=== PATIENT | female | born 1965 | race Caucasian/White ===

== ENCOUNTER 2018-03-20 07:23 | Emergency (ER) | payer MEDICAID ==
[~2018-03-20] VITALS: Ht 160 cm; Wt 63.5 kg
[2018-03-20 07:30] VITALS: BP 101/60
--- NOTE | 2018-03-20 07:46 | NUR ---
Dressing applied to L upper arm
[2018-03-20] MEDS ORDERED: BACI/NEOM/POLY B OINT PKT 1 UDPKT PACKET TP ONE (08:00)
== END 2018-03-20 07:49 | disposition home or self-care (01) ==
LOC: ER 07:26
DX: S41.152A Open bite of left upper arm, initial encounter (principal); F17.200 Nicotine dependence, unspecified, uncomplicated; Z98.890 Other specified postprocedural states; W54.0XXA Bitten by dog, initial encounter; Y93.89 Activity, other specified; Y92.89 Other specified places as the place of occurrence of the external cause; Y99.8 Other external cause status
CPT/HCPCS: 99282; A4606; Z7610

== ENCOUNTER 2018-04-19 12:46 | Emergency (ER) | payer MEDICAID ==
[~2018-04-19] VITALS: Ht 160 cm; Wt 62.6 kg
[2018-04-19 12:46] VITALS: BP 109/63
--- NOTE | 2018-04-19 14:36 | NUR ---
Patient discharged to home in stable condition. Written and verbal after care instructions given. Patient verbalizes understanding of instruction. left in stable condition.
== END 2018-04-19 13:04 | disposition home or self-care (01) ==
LOC: ER 12:46
DX: G89.11 Acute pain due to trauma (principal); M79.622 Pain in left upper arm; F17.200 Nicotine dependence, unspecified, uncomplicated; Z90.89 Acquired absence of other organs; Z98.890 Other specified postprocedural states
CPT/HCPCS: 73060-TC; A4606; Z7610

== ENCOUNTER 2018-07-04 11:33 | Emergency (ER) | payer MEDICAID ==
[~2018-07-04] VITALS: Ht 160 cm; Wt 61.2 kg
[2018-07-04 11:33] VITALS: BP 112/73
== END 2018-07-04 12:36 | disposition home or self-care (01) ==
LOC: ER 11:35
DX: G62.9 Polyneuropathy, unspecified (principal); F17.200 Nicotine dependence, unspecified, uncomplicated; Z90.89 Acquired absence of other organs; Z98.890 Other specified postprocedural states
CPT/HCPCS: 99283; A4606; Z7610

== ENCOUNTER 2019-03-03 16:21 | Emergency (ER) | payer MEDICAID ==
[~2019-03-03] VITALS: Ht 160 cm; Wt 67.1 kg
[2019-03-03 16:24] VITALS: BP 127/82
== END 2019-03-03 18:08 | disposition home or self-care (01) ==
LOC: ER 16:26
DX: S46.812A Strain of other muscles, fascia and tendons at shoulder and upper arm level, left arm, initial encounter (principal); S80.01XA Contusion of right knee, initial encounter; F17.200 Nicotine dependence, unspecified, uncomplicated; Z90.89 Acquired absence of other organs; Z98.890 Other specified postprocedural states; W01.198A Fall on same level from slipping, tripping and stumbling with subsequent striking against other object, initial encounter; Y93.89 Activity, other specified; Y92.89 Other specified places as the place of occurrence of the external cause; Y99.8 Other external cause status
CPT/HCPCS: 73030-TC

== ENCOUNTER 2020-04-12 12:11 | Emergency (ER) | payer OTHER ==
[~2020-04-12] VITALS: Ht 160 cm; Wt 63.5 kg
[2020-04-12 12:15] VITALS: BP 115/79
[2020-04-12] MEDS ORDERED: IBUPROFEN 600 MG TABLET ONE (12:46)
[2020-04-12] MEDS ORDERED: ACETAMINOPHEN ES 500 MG TABLET ONE (12:46)
[2020-04-12] MEDS ORDERED: ACETAMINOPHEN ES 500 MG TABLET PO ONE (13:00)
[2020-04-12] MEDS ORDERED: IBUPROFEN 600 MG TABLET PO ONE (13:00)
--- NOTE | 2020-04-12 13:38 | NUR ---
Patient a/ox4, breathing even and unlabored, no sob noted, Patient discharged to home in stable condition. Written and verbal after care instructions given. Patient verbalizes understanding of instruction.
== END 2020-04-12 13:38 | disposition home or self-care (01) ==
LOC: ER 12:13
DX: M62.830 Muscle spasm of back (principal); M25.512 Pain in left shoulder; R94.31 Abnormal electrocardiogram [ECG] [EKG]; F17.200 Nicotine dependence, unspecified, uncomplicated; Z98.890 Other specified postprocedural states; Z90.89 Acquired absence of other organs
CPT/HCPCS: 71045-TC